=== PATIENT | female | born 1995 | race Caucasian/White ===

== ENCOUNTER 2016-11-28 21:31 | Emergency (ER) | payer MEDICAID, OTHER, SELFPAY ==
[~2016-11-28] VITALS: Ht 165.1 cm; Wt 64.0 kg
[2016-11-28] MEDS ORDERED: ONDANSETRON 2MG/ML, 2ML IVPush ONE (22:30)
[2016-11-28] MEDS ORDERED: SODIUM CHLORIDE 0.9% 1,000ML IVBOLUS ONE (22:30)
[2016-11-28] MEDS ORDERED: SODIUM CHLORIDE FLUSH 10ML SYR IVF ONE (22:30)
[2016-11-28] MEDS ORDERED: ONDANSETRON 2MG/ML, 2ML ONE (22:56)
[2016-11-28 23:01] LABS: BLOOD UREA NITROGEN 7 mg/dL (7-18)
[2016-11-28 23:33] VITALS: BP 91/51
== END 2016-11-29 00:32 | disposition home or self-care (01) ==
LOC: ED 23:59
DX: O23.12 Infections of bladder in pregnancy, second trimester (principal); O26.892 Other specified pregnancy related conditions, second trimester; R11.0 Nausea; Z3A.14 14 weeks gestation of pregnancy
CPT/HCPCS: 36415; 76801; 80048; 81001; 82040; 85025; 86901; 87077; 87086; 87186; 96361; 96374; 99285; J2405; J7030